=== PATIENT | male | born 1955 | race Caucasian/White ===

== ENCOUNTER 2022-06-09 15:35 | Emergency (ER) | payer OTHER ==
[~2022-06-09] VITALS: Ht 167.6 cm; Wt 86.2 kg
[2022-06-09] MEDS ORDERED: CYCL10 PO (17:20)
== END 2022-06-09 17:33 | disposition home or self-care (01) ==
LOC: ER 15:35
DX: S76.012A Strain of muscle, fascia and tendon of left hip, initial encounter (principal); V44.6XXA Car passenger injured in collision with heavy transport vehicle or bus in traffic accident, initial encounter
CPT/HCPCS: 73502; 99284-25